=== PATIENT | female | born 1980 | race Caucasian/White ===

== ENCOUNTER 2018-04-16 20:19 | Emergency (ER) | payer OTHER ==
[~2018-04-16] VITALS: Ht 175.3 cm; Wt 127.0 kg
[2018-04-16 20:25] VITALS: BP 111/79
--- NOTE | 2018-04-16 20:25 | NUR ---
[facility] A BED # 9 AMBULATORY , REPORT GIVEN TO LEIDY ZELAYA
--- NOTE | 2018-04-16 20:32 | NUR ---
PATIENT PRESENTS TO ED CRYING, STATING HAVING ANXIETY ATTACK AND HAS NOT TAKEN MED TODAY PT DENIES N/V/D; SKIN IS PINK/WARM/DRY; AAOX4 WITH EVEN AND STEADY GAIT; LUNGS CLEAR BL; HR EVEN AND REGULAR; PATIENT STATES PAIN OF 6/10 AT THIS TIME; VSS; PATIENT POSITIONED FOR COMFORT; HOB ELEVATED; BEDRAILS UP X2; BED DOWN.
--- NOTE | 2018-04-16 21:14 | NUR ---
Dr. Mejia evaluating patient at bedside.
[2018-04-16] MEDS ORDERED: LORazepam 2 MG/ML VIAL IM ONE ×2 (21:25→22:30)
--- NOTE | 2018-04-16 21:40 | NUR ---
IM MEDS GIVEN-NADR AT THIS TIME
--- NOTE | 2018-04-16 21:54 | NUR ---
Patient discharged with v/s stable. Written and verbal after care instructions given and explained. Patient alert, oriented and verbalized understanding of instructions. Ambulatory with steady gait. All questions addressed prior to discharge. ID band removed. Patient advised to follow up with PMD. NO Rx given. Patient educated on indication of medication including possible reaction and side effects. Opportunity to ask questions provided and answered. Addendum: 04/16/18 at 2329 by [email or web address] Amendment undone in EDM - 04/16/18 at 2335 by MEDNATASHA PT DISCHARGED AT 2154. WITH RX OF ATIVAN. AAOX4 Addendum: 04/16/18 at 233 by MEDAgnesShoppilotLauren PT DISCHARGED AT 2316. WITH RX OF ATIVAN. AAOX4
--- NOTE | 2018-04-16 22:10 | NUR ---
ER MD DR CALDERON CALLED PT BACK TO ROOM FOR 2 EVAL. PT AND SISTER RESTING AAOX4 IN ER BED 9. VSS, PT STABLE AT THIS TIME
[2018-04-16 22:12] VITALS: BP 146/82
== END 2018-04-16 23:16 | disposition home or self-care (01) ==
LOC: MED 20:19
DX: F41.9 Anxiety disorder, unspecified (principal)
CPT/HCPCS: 96372; 99284; J2060